=== PATIENT | female | born 1955 | race Caucasian/White ===

== ENCOUNTER 2017-03-27 13:04 | Emergency (ER) | payer OTHER ==
[~2017-03-27] VITALS: Ht 167.6 cm; Wt 82.1 kg
[2017-03-27] MEDS ORDERED: ONDANSETRON 2MG/ML, 2ML ONE (13:23)
[2017-03-27 13:30] LABS: HEMATOCRIT 41.2 % (34.6-47.8); HEMOGLOBIN 13.8 g/dL (11.7-16.4); WHITE BLOOD COUNT 7.1 x10^3/uL (3.4-10)
[2017-03-27] MEDS ORDERED: PLEASE ENTER ALLERGIES MC SCH ×2 (13:30)
[2017-03-27] MEDS ORDERED: SODIUM CHLORIDE 0.9% 1,000ML IVBOLUS ONE ×2 (13:30→15:30)
[2017-03-27] MEDS ORDERED: SODIUM CHLORIDE FLUSH 10ML SYR IVF ONE (13:30)
[2017-03-27] MEDS ORDERED: PLEASE ENTER HEIGHT AND WEIGHT MC SCH (13:30)
[2017-03-27] MEDS ORDERED: ONDANSETRON 2MG/ML, 2ML IVPush ONE (13:30)
[2017-03-27 13:42] LABS: BLOOD UREA NITROGEN 20 mg/dL (7-18)
[2017-03-27 13:46] LABS: ASPARTATE AMINO TRANSFERASE 102 U/L (15-37)
[2017-03-27 16:06] VITALS: BP 135/79
== END 2017-03-27 16:50 | disposition home or self-care (01) ==
LOC: ED 14:22
DX: R55 Syncope and collapse (principal); E86.0 Dehydration; I10 Essential (primary) hypertension
CPT/HCPCS: 36415; 80053; 81003; 82962; 83690; 85025; 93005; 96361; 96374; 99285; J2405; J7030